=== PATIENT | male | born 1985 | race Caucasian/White ===

== ENCOUNTER → 2023-10-10 | Outpatient (CLI) | payer OTHER | LOC: M SOG 07:59 | PROVIDERS: ATTEND Physician Assistant | DX: M79.641 Pain in right hand (principal) ==

== ENCOUNTER → 2023-11-01 | Outpatient (CLI) | payer OTHER | LOC: M RAD 16:26 | PROVIDERS: ATTEND Physician Assistant | DX: M79.641 Pain in right hand (principal); Z87.81 Personal history of (healed) traumatic fracture ==